=== PATIENT | male | born 1995 | race Caucasian/White ===

== ENCOUNTER 2019-02-21 07:07 | Outpatient (CLI) | payer BC, SELFPAY ==
--- NOTE | 2019-02-21 07:15 | USCV_ITS ---
Barb Briones Age: 23 Gender: M : 1995 Exam Date: 02/21/2019 07:36 Ordering Phys: Makenna Carlson MD ([email or web address]) Technologist: Reynaldo Fonseca Exam Location: [facility] [place] Indication: PULMONIC AND AORTIC VALVE PROS, s/p Ross procedure BP: 130 / 74 HR: 72 Rhythm: Sinus Technical Quality: Good MEASUREMENTS (Male / Female) Normal Values 2D ECHO LV Diastolic Diameter PLAX 4.5 cm 4.2 - 5.9 / 3.9 - 5.3 cm LV Systolic Diameter PLAX 3.0 cm IVS Diastolic Thickness 0.8 cm 0.6 - 1.0 / 0.6 - 0.9 cm IVS Systolic Thickness 1.3 cm LVPW Diastolic Thickness 0.9 cm 0.6 - 1.0 / 0.6 - 0.9 cm LVPW Systolic Thickness 1.5 cm LVOT Diameter 2.0 cm LV Ejection Fraction 2D Teich 63.0 % LV Ejection Fraction MOD 2C 62.1 % LV Ejection Fraction 2C AL 62.3 % LA Diameter 3.1 cm Aorta at Sinotubular Diameter 3.6 cm DOPPLER AV Peak Velocity 111.0 cm/s LVOT Peak Velocity 81.0 cm/s AV Area Cont Eq vti 2.1 cm squared AV Area Cont Eq pk 2.3 cm squared MV Area PHT 5.0 cm squared Mitral E to A Ratio 1.7 MV E' Velocity 16.0 cm/s Mitral E to MV E' Ratio 6.8 Mitral E to LV E' Lateral Ratio 5.9 Mitral E to LV E' Septal Ratio 8.1 TR Peak Velocity 288.0 cm/s TR Peak Gradient 33.3 mmHg TV Peak E Velocity 90.0 cm/s Right Atrial Pressure 3.0 mmHg Pulmonary Artery Systolic Pressu 36.2 mmHg FINDINGS Left Ventricle Normal left ventricular size, systolic function and wall thickness, with no regional wall motion abnormalities. Left ventricular ejection fraction is estimated at 60 %. Normal diastolic function. Right Ventricle Normal right ventricular size and systolic function, RVSP 36.2 mmHg. Right Atrium Normal right atrial size. Left Atrium Normal left atrial size. Mitral Valve Structurally normal mitral valve. No mitral valve stenosis. Trace mitral valve regurgitation. 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 No aortic valve stenosis. Trace to mild aortic valve regurgitation. No evidence of perivalvular regurgitation. Tricuspid Valve Structurally normal tricuspid valve. No tricuspid valve stenosis. Trace tricuspid valve regurgitation. 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 No pulmonary valve stenosis. Trace pulmonary valve regurgitation. Pericardium No pericardial effusion. Aorta Normal size aortic root and proximal ascending aorta. CONCLUSIONS 1. Normal left ventricular size, systolic function and wall thickness, with no regional wall motion abnormalities. Left ventricular ejection fraction is estimated at 60 %. Normal diastolic function. 2. Normal right ventricular size and systolic function, RVSP 36.2 mmHg. 3. 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 No aortic valve stenosis. 4. Trace to mild aortic valve regurgitation. 5. No prior similar studies to compare. Makenna Carlson MD (Electronically Signed) Final Date: 22 February 2019 13:29 S
== END 2019-02-21 07:08 | disposition home or self-care (01) ==
LOC: RAD 07:15
PROVIDERS: Family Provider Family Medicine; PCP Family Medicine; Visit Provider Internal Medicine Cardiovascular Disease
DX: I08.3 Combined rheumatic disorders of mitral, aortic and tricuspid valves (principal); Z95.2 Presence of prosthetic heart valve
CPT/HCPCS: 93306

== ENCOUNTER 2019-04-29 17:03 | Emergency (ER) | payer BC, SELFPAY ==
[2019-04-29 17:09] VITALS: RESP 18; BMI 32.1
[2019-04-29 17:22] VITALS: BP 157/87
--- NOTE | 2019-04-29 17:47 | ED_ITS ---
Entered by Jennifer Carter, acting as scribe for Lee Palacios DO Documented by User: Himanshu Blakely DO 04/29/19 21:13 HPI - Chest Pain General: Chief Complaint: Chest Pain Stated Complaint: CP Time Seen by Provider: 04/29/19 17:52 [facility] ED PFSH: Medical History (Updated 04/29/19 @ 19:21 by Himanshu Blakely DO) Aortic regurgitation Surgical History (Updated 04/29/19 @ 19:21 by Himanshu Blakely DO) H/O Ross procedure History of replacement of pulmonary valve S/P AVR (aortic valve replacement) Family History (Updated 04/24/19 @ 09:25 by Sejal Ortez, RN) Father CAD (coronary artery disease) Diabetes Hypertension Mother CAD (coronary artery disease) Hypertension Social History (Updated 04/24/19 @ 09:25 by Sejal Ortez, DEVIN) Smoking and tobacco status: never smoked Household members: spouse Marital status: Current occupational status: employed Current gender identity: Male Course Vital Signs: Vital signs: Vital Signs Pulse Rate 69 04/29/19 19:29 Respiratory Rate 14 04/29/19 19:29 Blood Pressure 125/93 04/29/19 19:29 Pulse Oximetry 100 04/29/19 19:29 MDM - Chest Pain MDM Narrative: Medical decision making narrative: 23-year-old male checked out to me by Dr. Palacios. This young man has had an aortic valve procedure consisting of a replacement. He presents with chest discomfort. His hemoglobin is 15. White blood cell count 9. His labs are otherwise normal. His troponin is negative. His EKG is completely normal despite his surgery. He had a recent echo in February showing a normal ejection fraction, and good valve performance. Will allow him home to follow-up with cardiology. Lab Data: Labs: Lab Results 04/29/19 04/29/19 04/29/19 Range/Units 17:45 17:45 17:45 WBC 9.0 (4.0-10.0) 10^3/ uL RBC 4.71 (4.1-5.3) 10^6/u L Hgb 14.8 (11.7-16.6) g/dL Hct 44.0 (42.0-52.0) % MCV 93.4 (80-94) fL MCH 31.4 (28.0-34.0) pg MCHC 33.6 (30.0-36.0) g/dL RDW 13.3 (12.1-15.1) % Plt Count 298 (130-400) 10^3/c mm MPV 10.0 (7.4-10.4) fL Neut % (Auto) 50.8 % Lymph % (Auto) 41.1 % Barber % (Auto) 7.2 % Eos % (Auto) 0.4 % Baso % (Auto) 0.3 % Neut # (Auto) 4.5 (1.8-7.7) 10^3/u L Lymph # (Auto) 3.7 (0.8-4.8) 10^3/u L Barber # (Auto) 0.6 (0.2-0.9) 10^3/u L Eos # (Auto) 0.0 (0.0-0.8) 10^3/u L Baso # (Auto) 0.0 (0.0-0.1) 10^3/u L Nucleated RBC % (a uto) 0 % Nucleated RBCs # 0.0 /100WBC Sodium 136 (136-145) mmol/L Potassium 3.9 (3.5-5.1) mmol/L Chloride 100 (98-107) mmol/L Carbon Dioxide 24 (22-29) mmol/L Anion Gap 15.9 (5-19) BUN 13 (6-20) mg/dL Creatinine 0.8 (0.7-1.2) mg/dL GFR Calculation 117.8 (90-130) mL/min Glucose 97 (65-115) mg/dL Calculated Osmolal ity 278 L (285-295) mOsm/k g Calcium 10.1 (8.5-10.5) mg/dL Total Bilirubin 0.4 (0.15-1.2) mg/dL AST 23 (0-40) U/L ALT 35 (0-41) U/L Alkaline Phosphata se 79 (40-130) IU/L Troponin T Baselin e 6 (0-15) ng/mL Total Protein 7.4 (6.6-8.7) g/dL Albumin 4.7 (3.5-5.2) g/dL Globulin 2.7 (1.3-4.6) g/dL Discharge Plan Discharge Clinical Impression: S/P AVR (aortic valve replacement) Chest pain Qualifiers: Chest pain type: unspecified Qualified Code(s): R07.9 - Chest pain, unspecified Condition: Stable Prescriptions: No Action No Known Home Medications RF: 0 Discharge Orders: Discharge Order (Routine); Ordered 04/29/19 Ordered By: Himanshu Blakely Referrals: Vince Carey [Primary Care Provider] - 4-7 days Makenna Carlson MD [Physician] - 7-10 days Discharge Diet: Usual diet Discharge Activity: Increase activity as tolerated Patient Instructions: Chest Pain (ED) Activity Restrictions/Additional Instructions: Call the cardiology clinic Wednesday morning. Let them know you were here with some chest discomfort. They may want to see you in follow-up. Return for fever greater than 100, worsening pain, significant shortness of breath, other concerning symptoms. Discharge Date/Time: 04/29/19 19:34 Coding Level of Care Code ED Alarm Mechanic for Chg Fwd Exam Comprehensive Documented by User: Lee Palacios DO 05/02/19 00:55 HPI - Chest Pain General: Chief Complaint: Chest Pain Stated Complaint: CP Time Seen by Provider: 04/29/19 17:52 History of Present Illness: HPI narrative: 23yo male presents with left chest pain. Symptoms started today and have been constant. Patient had a procedure at 1 years old for aortic stenosis and has a donor valve. He denies any shortness of breath, nausea, vomiting, fever, chills, or cough. Denies any long car rides. Associated symptoms: Deny abdominal pain, dyspnea, fever(s), nausea or vomiting Review of Systems Const: Denies: fever, chills, body aches, change in appetite, fatigue or malaise ENMT: Denies: throat pain, ear pain, nasal discharge or nasal congestion Card: Reports: chest pain; Denies: edema, shortness of breath on exertion or shortness of breath when lying down Resp: Denies: shortness of breath, productive cough or non-productive cough GI: Denies: abdominal pain, nausea, vomiting, vomiting blood, coffee grounds in vomit, diarrhea, constipation, bloating, blood in stool or black tarry stool : Denies: flank pain, painful urination, urinary frequency or urinary urgency Skin/Breast: Denies: rash or itching PFSH ED PFSH: Medical History (Updated 04/29/19 @ 19:21 by Himanshu Blakely DO) Aortic regurgitation Surgical History (Updated 04/29/19 @ 19:21 by Himanshu Blakely DO) H/O Ross procedure History of replacement of pulmonary valve S/P AVR (aortic valve replacement) Family History (Updated 04/24/19 @ 09:25 by Sejal Ortez RN) Father CAD (coronary artery disease) Diabetes Hypertension Mother CAD (coronary artery disease) Hypertension Social History (Updated 04/24/19 @ 09:25 by Sejal Ortez RN) Smoking and tobacco status: never smoked Household members: spouse Marital status: Current occupational status: employed Current gender identity: Male Physical Exam Const: COMMON NORMALS: no apparent distress GENERAL APPEARANCE: cooperative and comfortable ORIENTATION/CONSCIOUSNESS: Yes awake, Yes oriented to person, Yes oriented to place and Yes oriented to time HENMT: COMMON NORMALS: normocephalic, head/scalp atraumatic, hearing grossly normal bilaterally, external ears normal, EAC's normal, TM's normal bilaterally, nasal mucous membranes and turbinates normal, moist oral mucous membranes and oropharynx normal HEAD & SCALP: normocephalic and atraumatic NOSE: nasal mucous membranes and turbinates normal EXTERNAL EAR: Yes external ears normal EXTERNAL AUDITORY CANAL: EAC's normal TYMPANIC MEMBRANE: TM's normal bilaterally Eye: COMMON NORMALS: PERRL, EOMs intact bilaterally, conjunctivae normal and no scleral icterus CONJUNCTIVA: Yes conjunctivae normal PUPIL: Yes PERRL Neck/C-Spine: COMMON NORMALS: full ROM, no lymphadenopathy, supple and no JVD Lymph: LYMPHATIC: no lymphadenopathy noted and no lymphedema noted Resp: COMMON NORMALS: normal respiratory effort, no retractions, no use of accessory muscles and clear to auscultation bilaterally AUSCULTATION: clear to auscultation bilaterally Cardio: COMMON NORMALS: no JVD, regular rate, regular rhythm and no murmurs RATE: regular rate RHYTHM: regular rhythm GI: COMMON NORMALS: soft to palpation and no hepatosplenomegaly AUSCULTATION: Yes normoactive bowel sounds PALPATION: Yes soft, No tender, No guarding and Yes no hepatosplenomegaly Extremity: COMMON NORMALS: normal to inspection, normal capillary refill, no clubbing, cyanosis or edema, no calf tenderness and no pedal edema Neuro: SENSORIUM/ORIENTATION: Yes oriented to person, Yes oriented to place and Yes oriented to time Skin: COMMON NORMALS: no rashes or lesions noted GENERAL SKIN EXAM: no rashes or lesions noted Course ED course: Patient complaining of chest pain. Care turned over to Dr. Blakely at change of shift labs pending Vital Signs: Vital signs: Vital Signs Pulse Rate 69 04/29/19 19:29 Respiratory Rate 14 04/29/19 19:29 Blood Pressure 125/93 04/29/19 19:29 Pulse Oximetry 100 04/29/19 19:29 MDM - Chest Pain Lab Data: Labs: Lab Results 04/29/19 04/29/19 04/29/19 Range/Units 17:45 17:45 17:45 WBC 9.0 (4.0-10.0) 10^3/ uL RBC 4.71 (4.1-5.3) 10^6/u L Hgb 14.8 (11.7-16.6) g/dL Hct 44.0 (42.0-52.0) % MCV 93.4 (80-94) fL MCH 31.4 (28.0-34.0) pg MCHC 33.6 (30.0-36.0) g/dL RDW 13.3 (12.1-15.1) % Plt Count 298 (130-400) 10^3/c mm MPV 10.0 (7.4-10.4) fL Neut % (Auto) 50.8 % Lymph % (Auto) 41.1 % Barber % (Auto) 7.2 % Eos % (Auto) 0.4 % Baso % (Auto) 0.3 % Neut # (Auto) 4.5 (1.8-7.7) 10^3/u L Lymph # (Auto) 3.7 (0.8-4.8) 10^3/u L Barber # (Auto) 0.6 (0.2-0.9) 10^3/u L Eos # (Auto) 0.0 (0.0-0.8) 10^3/u L Baso # (Auto) 0.0 (0.0-0.1) 10^3/u L Nucleated RBC % (a uto) 0 % Nucleated RBCs # 0.0 /100WBC Sodium 136 (136-145) mmol/L Potassium 3.9 (3.5-5.1) mmol/L Chloride 100 (98-107) mmol/L Carbon Dioxide 24 (22-29) mmol/L Anion Gap 15.9 (5-19) BUN 13 (6-20) mg/dL Creatinine 0.8 (0.7-1.2) mg/dL GFR Calculation 117.8 (90-130) mL/min Glucose 97 (65-115) mg/dL Calculated Osmolal ity 278 L (285-295) mOsm/k g Calcium 10.1 (8.5-10.5) mg/dL Total Bilirubin 0.4 (0.15-1.2) mg/dL AST 23 (0-40) U/L ALT 35 (0-41) U/L Alkaline Phosphata se 79 (40-130) IU/L Troponin T Baselin e 6 (0-15) ng/mL Total Protein 7.4 (6.6-8.7) g/dL Albumin 4.7 (3.5-5.2) g/dL Globulin 2.7 (1.3-4.6) g/dL Discharge Plan Discharge Clinical Impression: S/P AVR (aortic valve replacement) Chest pain Qualifiers: Chest pain type: unspecified Qualified Code(s): R07.9 - Chest pain, unspecified Condition: Stable Prescriptions: No Action No Known Home Medications RF: 0 Discharge Orders: Discharge Order (Routine); Ordered 04/29/19 Ordered By: Himanshu Blakely Referrals: Vince Carey [Primary Care Provider] - 4-7 days Makenna Carlson MD [Physician] - 7-10 days Discharge Diet: Usual diet Discharge Activity: Increase activity as tolerated Patient Instructions: Chest Pain (ED) Activity Restrictions/Additional Instructions: Call the cardiology clinic Wednesday morning. Let them know you were here with some chest discomfort. They may want to see you in follow-up. Return for fever greater than 100, worsening pain, significant shortness of breath, other concerning symptoms. Discharge Date/Time: 04/29/19 19:34 Coding Level of Care Code ED Alarm Mechanic for Chg Fwd Exam Comprehensive The documentation recorded by the Raul golden Bailey Leadawn, accurately reflects the service I personally performed and the decisions made by me, Lee Palacios, Apr 29, 2019 17:03
--- NOTE | 2019-04-29 17:52 | XRR_ITS ---
PROCEDURE INFORMATION: Exam: XR Chest, 1 View Exam date and time: 04/29/2019 5:53 PM Age: 23 years old Clinical indication: Chest wall pain; Prior surgery; Surgery date: 6+ months; Surgery type: Cabg; Additional info: Dyspnea/cough TECHNIQUE: Imaging protocol: XR of the chest Views: 1 view. COMPARISON: No relevant prior studies available. FINDINGS: Lungs: Unremarkable. No consolidation. There is an azygos fissure. Punctate calcified granulomas are noted. Pleural space: Unremarkable. No pleural effusion. No pneumothorax. Heart/Mediastinum: There is cardiomegaly. Postoperative changes of a sternotomy are noted. Bones/joints: No acute abnormality. XR/XR chest 1V portable [id number] IMPRESSION: No acute findings.
--- NOTE | 2019-04-29 17:52 | ECG_ITS ---
Measurements Intervals [place] Rate: 71 P: 43 AR: 147 QRS: 86 QRSD: 102 T: 62 QT: 382 QTc: 415 SINUS RHYTHM No previous ECG available for comparison Electronically Signed On 04-30-2019 9:16:30 CDT by Gregg Ho M.D. [email or web address]
[2019-04-29 17:53] VITALS: BP 134/95; PULSE 88; RESP 16; O2SAT 99
[2019-04-29 18:12] LABS: Basophils % 0.3 %; Eosinophils % 0.4 %; Hemoglobin 14.8 g/dL (11.7-16.6); Lymphocytes # 3.7 10^3/uL (0.8-4.8); Lymphocytes % 41.1 %; Mean Corpuscular HGB Conc 33.6 g/dL (30.0-36.0); Mean Corpuscular Hemoglobin 31.4 pg (28.0-34.0); Mean Corpuscular Volume 93.4 fL (80-94); Monocytes # 0.6 10^3/uL (0.2-0.9); Monocytes % 7.2 %; Neutrophils # 4.5 10^3/uL (1.8-7.7); Neutrophils % 50.8 %; Nucleated Red Blood Cells % 0 %; Platelet Count 298 10^3/cmm (130-400); Red Blood Count 4.71 10^6/uL (4.1-5.3); Red Cell Distribution Width 13.3 % (12.1-15.1)
[2019-04-29 18:16] LABS: Alanine Aminotransferase 35 U/L (0-41); Albumin Level 4.7 g/dL (3.5-5.2); Alkaline Phosphatase 79 IU/L (40-130); Anion Gap 15.9 (5-19); Aspartate Amino Transferase 23 U/L (0-40); Blood Urea Nitrogen 13 mg/dL (6-20); Calcium 10.1 mg/dL (8.5-10.5); Carbon Dioxide 24 mmol/L (22-29); Chloride 100 mmol/L (98-107); Globulin 2.7 g/dL (1.3-4.6); Glomerular Filtration Rate 117.8 mL/min (90-130); Glucose 97 mg/dL (65-115); Osmolality Calculated 278 mOsm/kg (285-295); Potassium 3.9 mmol/L (3.5-5.1); Sodium 136 mmol/L (136-145); Total Bilirubin 0.4 mg/dL (0.15-1.2); Total Protein 7.4 g/dL (6.6-8.7)
[2019-04-29 18:18] LABS: Troponin(5th) Baseline 6 ng/mL (0-15)
[2019-04-29 18:38] VITALS: BP 132/88; PULSE 67; RESP 14; O2SAT 99
--- NOTE | 2019-04-29 19:04 | PC.NURSE ---
Report received from DEVIN Cuevas and care transferred to DEVIN Lee
[2019-04-29 19:08] VITALS: BP 128/93; PULSE 64; RESP 14; O2SAT 100
[2019-04-29 19:29] VITALS: BP 125/93; PULSE 69; RESP 14; O2SAT 100
== END 2019-04-29 19:34 ==
PROVIDERS: Family Medicine; Emergency Provider Emergency Medicine; Family Provider Family Medicine; PCP Family Medicine
DX: R07.9 Chest pain, unspecified (principal); Z95.2 Presence of prosthetic heart valve; Z82.49 Family history of ischemic heart disease and other diseases of the circulatory system
CPT/HCPCS: 12345; 71045; 80053; 84484; 85025; 93005; 99283; 99284

== ENCOUNTER 2021-04-04 04:50 | Emergency (ER) | payer BC, MEDICAID, SELFPAY ==
[2021-04-04 04:56] VITALS: BP 154/91; PULSE 86; RESP 18; TEMP 37; O2SAT 96; BMI 32.8
[2021-04-04] MEDS: ondansetron 2 mg/ML SDV 2 mL 4 MG IVP (05:07)
--- NOTE | 2021-04-04 05:13 | ED_ITS ---
Documented by User: Vic Whitehead MD 04/04/21 18:02 HPI - Nausea/Vomiting/Diarrhea General: Chief complaint: Nausea/Vomiting/Diarrhea Stated complaint: Vomiting Blood Time Seen by Provider: 04/04/21 04:53 Source: patient Mode of arrival: ambulatory Limitations: no limitations History of Present Illness: 25-year-old male states that he woke up this morning felt nauseous and had an episode of vomiting at 330. He states that a small amount of blood in the vomitus concerning. Denies any abdominal pain denies any worsening improving factors he is not on any blood thinners. He denies blood in his stool states he has had some diarrhea in the last day but no dark stools no blood in his stool. 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 S/P AVR (aortic valve replacement) Family History Father CAD (coronary artery disease) Diabetes Hypertension Mother CAD (coronary artery disease) Hypertension Social History Smoking and tobacco status: never smoked Household members: spouse Marital status: Current occupational status: employed Current gender identity: Male Physical Exam Const: COMMON NORMALS: no acute distress, patient oriented x3 and healthy appearing HENMT: COMMON NORMALS: normocephalic and atraumatic HEAD & SCALP: normocephalic and atraumatic Eye: COMMON NORMALS: Equal, round and reactive pupils present and EOMs intact bilaterally PUPIL: Yes Equal, round and reactive pupils present Neck/C-Spine: COMMON NORMALS: full ROM and supple Chest: COMMONS NORMALS: normal inspection of the chest and normal palpation of entire chest wall Resp: COMMON NORMALS: normal respiratory effort, No retractions, No use of ac cessory muscles and clear to auscultation bilaterally AUSCULTATION: clear to auscultation bilaterally Cardio: COMMON NORMALS: regular rate, regular rhythm and No murmurs present (Cardio) RATE: regular rate RHYTHM: regular rhythm GI: COMMON NORMALS: Normal to inspection, nondistended, normoactive bowel sounds present, Soft to palpation, non-tender and no masses PALPATION: Yes Soft to palpation RECTAL EXAM: Yes visual inspection normal, No Abnormal stool present and No heme positive stool Extremity: COMMON NORMALS: normal to inspection and full ROM Neuro: COMMON NORMALS: patient oriented x3, moves all extremities and no focal motor deficits Psych: COMMON NORMALS: mental status grossly normal, Normal thought process present and cooperative THOUGHT PROCESS: Normal thought process present Skin: COMMON NORMALS: no rashes or lesions noted and no wounds GENERAL SKIN EXAM: no rashes or lesions noted Course Vital Signs: Vital signs: Vital Signs Temperature 98.6 F 04/04/21 04:56 Pulse Rate 78 04/04/21 09:39 Respiratory Rate 15 04/04/21 07:40 Blood Pressure 150/98 04/04/21 07:40 Pulse Oximetry 99 04/04/21 09:39 MDM - Nausea/Vomiting/Diarrhea Medical Decision Making Patient presents with vomiting did have one episode of vomiting blood he showed me a picture was a small amount likely from Tanya-Foster tear. He is not on any blood thinners no history of varices. He had no blood in his stool here on rectal exam hemoglobin is normal he had no bleeding here. He is stable for discharge is to follow-up with PCP and return if worsening. We will get him follow-up with GI Dr. Clarke as well for possible EGD in the future. Lab Data : 04/04/21 05:08 04/04/21 08:20 Laboratory Results WBC 10.6 10^3/uL (4.0-10.0) H 04/04/21 05:08 RBC 4.85 10^6/uL (4.1-5.3) 04/04/21 05:08 Hgb 15.1 g/dL (11.7-16.6) 04/04/21 05:08 Hct 44.3 % (42.0-52.0) 04/04/21 05:08 MCV 91.3 fl (80-94) 04/04/21 05:08 MCH 31.1 pg (28.0-34.0) 04/04/21 05:08 MCHC 34.1 g/dL (30.0-36.0) 04/04/21 05:08 RDW 13.2 % (12.1-15.1) 04/04/21 05:08 Plt Count 279 10^3/cmm (130-400) 04/04/21 05:08 MPV 9.6 fL (7.4-10.4) 04/04/21 05:08 Neut % (Auto) 74.3 % 04/04/21 05:08 Lymph % (Auto) 19.1 % 04/04/21 05:08 [place] % (Auto) 5.8 % 04/04/21 05:08 Eos % (Auto) 0.2 % 04/04/21 05:08 Baso % (Auto) 0.2 % 04/04/21 05:08 Neut # (Auto) 7.85 10^3/uL (1.8-7.7) H 04/04/21 05:08 Lymph # (Auto) 2.0 10^3/uL (0.8-4.8) 04/04/21 05:08 [place] # (Auto) 0.6 10^3/uL (0.2-0.9) 04/04/21 05:08 Eos # (Auto) 0.0 10^3/uL (0.0-0.8) 04/04/21 05:08 Baso # (Auto) 0.0 10^3/uL (0.0-0.1) 04/04/21 05:08 Nucleated RBC % (auto) 0 % 04/04/21 05:08 Nucleated RBCs # 0.0 /100WBC 04/04/21 05:08 PT 13.60 SECONDS (12.1-14.9) 04/04/21 05:08 INR 1.01 (0.8-1.2) 04/04/21 05:08 Sodium 137 mmol/L (136-145) 04/04/21 08:20 Potassium 4.3 mmol/L (3.5-5.1) 04/04/21 08:20 Chloride 102 mmol/L (98-107) 04/04/21 08:20 Carbon Dioxide 23 mmol/L (22-29) 04/04/21 08:20 Anion Gap 16.3 (5-19) 04/04/21 08:20 BUN 12 mg/dL (6-20) 04/04/21 08:20 Creatinine 0.6 mg/dL (0.7-1.2) L 04/04/21 08:20 GFR Calculation 161.6 mL/min (90-130) H 04/04/21 08:20 Glucose 104 mg/dL (65-115) 04/04/21 08:20 Calculated Osmolality 284 mOsm/kg (285-295) L 04/04/21 08:20 Calcium 9.3 mg/dL (8.5-10.5) 04/04/21 08:20 Total Bilirubin 0.5 mg/dL (0.15-1.2) 04/04/21 06:04 AST 28 U/L (0-40) 04/04/21 06:04 ALT 49 U/L (0-41) H 04/04/21 06:04 Alkaline Phosphatase 43 IU/L (40-130) 04/04/21 06:04 Total Protein 5.6 g/dL (6.6-8.7) L 04/04/21 06:04 Albumin 3.4 g/dL (3.5-5.2) L 04/04/21 06:04 Globulin 2.2 g/dL (1.3-4.6) 04/04/21 06:04 Lipase 12 U/L (13-60) L 04/04/21 06:04 Discharge Plan Discharge Patient Disposition: Home Clinical Impression: Hematemesis Condition: Stable Prescriptions: New ondansetron 4 mg tablet,disintegrating 4 mg PO Q6H PRN (Reason: nausea and vomiting) Qty: 14 0RF Discharge Orders: Discharge ED (Routine); Ordered 04/04/21 Ordered By: Jose Armando Cano Referrals: Wes Clarke MD [Physician] - 1-3 days Vince Carey [Primary Care Provider] - Discharge Diet: Advance as tolerated Discharge Activity: Resume usual activity Patient Instructions: Hematemesis (ED) Coding Level of Care Code ED Senior Applications Engineer for Chg Fwd Exam Comprehensive Documented by User: Jose Armando Cano MD 04/04/21 09:24 HPI - Nausea/Vomiting/Diarrhea General: Chief complaint: Nausea/Vomiting/Diarrhea Stated complaint: Vomiting Blood Time Seen by Provider: 04/04/21 04:53 PFSH ED PFSH: Medical History Aortic regurgitation Surgical History 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 Whitehead. Patient here with nausea and vomiting. Awaiting lab results. BMP showed a potassium of 2.8. Will give IV fluid, p.o. potassium, IV potassium, and recheck BMP. On recheck the patient's potassium is within normal limits. I talked to the patient about the test results. Will discharge at this time with precautions return for worsening or changing symptoms. Vital Signs: Vital signs: Vital Signs Temperature 98.6 F 04/04/21 04:56 Pulse Rate 78 04/04/21 09:39 Respiratory Rate 15 04/04/21 07:40 Blood Pressure 150/98 04/04/21 07:40 Pulse Oximetry 99 04/04/21 09:39 MDM - Nausea/Vomiting/Diarrhea Lab Data : 04/04/21 05:08 04/04/21 08:20 Laboratory Results WBC 10.6 10^3/uL (4.0-10.0) H 04/04/21 05:08 RBC 4.85 10^6/uL (4.1-5.3) 04/04/21 05:08 Hgb 15.1 g/dL (11.7-16.6) 04/04/21 05:08 Hct 44.3 % (42.0-52.0) 04/04/21 05:08 MCV 91.3 fl (80-94) 04/04/21 05:08 MCH 31.1 pg (28.0-34.0) 04/04/21 05:08 MCHC 34.1 g/dL (30.0-36.0) 04/04/21 05:08 RDW 13.2 % (12.1-15.1) 04/04/21 05:08 Plt Count 279 10^3/cmm (130-400) 04/04/21 05:08 MPV 9.6 fL (7.4-10.4) 04/04/21 05:08 Neut % (Auto) 74.3 % 04/04/21 05:08 Lymph % (Auto) 19.1 % 04/04/21 05:08 [place] % (Auto) 5.8 % 04/04/21 05:08 Eos % (Auto) 0.2 % 04/04/21 05:08 Baso % (Auto) 0.2 % 04/04/21 05:08 Neut # (Auto) 7.85 10^3/uL (1.8-7.7) H 04/04/21 05:08 Lymph # (Auto) 2.0 10^3/uL (0.8-4.8) 04/04/21 05:08 [place] # (Auto) 0.6 10^3/uL (0.2-0.9) 04/04/21 05:08 Eos # (Auto) 0.0 10^3/uL (0.0-0.8) 04/04/21 05:08 Baso # (Auto) 0.0 10^3/uL (0.0-0.1) 04/04/21 05:08 Nucleated RBC % (auto) 0 % 04/04/21 05:08 Nucleated RBCs # 0.0 /100WBC 04/04/21 05:08 PT 13.60 SECONDS (12.1-14.9) 04/04/21 05:08 INR 1.01 (0.8-1.2) 04/04/21 05:08 Sodium 137 mmol/L (136-145) 04/04/21 08:20 Potassium 4.3 mmol/L (3.5-5.1) 04/04/21 08:20 Chloride 102 mmol/L (98-107) 04/04/21 08:20 Carbon Dioxide 23 mmol/L (22-29) 04/04/21 08:20 Anion Gap 16.3 (5-19) 04/04/21 08:20 BUN 12 mg/dL (6-20) 04/04/21 08:20 Creatinine 0.6 mg/dL (0.7-1.2) L 04/04/21 08:20 GFR Calculation 161.6 mL/min (90-130) H 04/04/21 08:20 Glucose 104 mg/dL (65-115) 04/04/21 08:20 Calculated Osmolality 284 mOsm/kg (285-295) L 04/04/21 08:20 Calcium 9.3 mg/dL (8.5-10.5) 04/04/21 08:20 Total Bilirubin 0.5 mg/dL (0.15-1.2) 04/04/21 06:04 AST 28 U/L (0-40) 04/04/21 06:04 ALT 49 U/L (0-41) H 04/04/21 06:04 Alkaline Phosphatase 43 IU/L (40-130) 04/04/21 06:04 Total Protein 5.6 g/dL (6.6-8.7) L 04/04/21 06:04 Albumin 3.4 g/dL (3.5-5.2) L 04/04/21 06:04 Globulin 2.2 g/dL (1.3-4.6) 04/04/21 06:04 Lipase 12 U/L (13-60) L 04/04/21 06:04 Discharge Plan Discharge Patient Disposition: Home Clinical Impression: Hematemesis Condition: Stable Prescriptions: New ondansetron 4 mg tablet,disintegrating 4 mg PO Q6H PRN (Reason: nausea and vomiting) Qty: 14 0RF Discharge Orders: Discharge ED (Routine); Ordered 04/04/21 Ordered By: Jose Armando Cano Referrals: Wes Clarke MD [Physician] - 1-3 days Vince Carey [Primary Care Provider] - Discharge Diet: Advance as tolerated Discharge Activity: Resume usual activity Patient Instructions: Hematemesis (ED) Coding Level of Care Code ED Senior Applications Engineer for Chg Fwd Exam Comprehensive
[2021-04-04 05:29] LABS: Basophils % 0.2 %; Eosinophils % 0.2 %; Hematocrit 44.3 % (42.0-52.0); Hemoglobin 15.1 g/dL (11.7-16.6); Lymphocytes % 19.1 %; Mean Corpuscular HGB Conc 34.1 g/dL (30.0-36.0); Mean Corpuscular Hemoglobin 31.1 pg (28.0-34.0); Mean Corpuscular Volume 91.3 fl (80-94); Mean Platelet Volume 9.6 fL (7.4-10.4); Monocytes # 0.6 10^3/uL (0.2-0.9); Monocytes % 5.8 %; Neutrophils # 7.85 10^3/uL (1.8-7.7); Neutrophils % 74.3 %; Nucleated Red Blood Cells % 0 %; Platelet Count 279 10^3/cmm (130-400); Red Blood Count 4.85 10^6/uL (4.1-5.3); Red Cell Distribution Width 13.2 % (12.1-15.1); White Blood Count 10.6 10^3/uL (4.0-10.0)
[2021-04-04 05:42] LABS: INR 1.01 (0.8-1.2)
[2021-04-04 06:31] LABS: Alanine Aminotransferase 49 U/L (0-41); Albumin Level 3.4 g/dL (3.5-5.2); Alkaline Phosphatase 43 IU/L (40-130); Anion Gap 11.8 (5-19); Aspartate Amino Transferase 28 U/L (0-40); Blood Urea Nitrogen 10 mg/dL (6-20); Calcium 6.5 mg/dL (8.5-10.5); Carbon Dioxide 18 mmol/L (22-29); Chloride 113 mmol/L (98-107); Globulin 2.2 g/dL (1.3-4.6); Glucose 114 mg/dL (65-115); Lipase 12 U/L (13-60); Osmolality Calculated 290 mOsm/kg (285-295); Sodium 140 mmol/L (136-145); Total Bilirubin 0.5 mg/dL (0.15-1.2); Total Protein 5.6 g/dL (6.6-8.7)
[2021-04-04 06:36] LABS: Potassium 2.8 mmol/L (3.5-5.1)
[2021-04-04] MEDS: potassium chloride ER 20 mEq Tablet PO (06:49)
[2021-04-04] MEDS: sodium chloride 0.9% 1,000 ML 999 ML IV (06:50)
[2021-04-04] MEDS: potassium chloride premix 100 ML 50 MEQ IV (06:53)
[2021-04-04 06:55] VITALS: BP 122/86; PULSE 71; RESP 18; O2SAT 96
[2021-04-04 07:08] VITALS: BP 139/91; PULSE 70; RESP 12; O2SAT 96
--- NOTE | 2021-04-04 07:13 | PC.NURSE ---
PATIENT RESTING COMFORTABLY IN BED WHILE FLUIDS RUNNING. PATIENT BED ADJUSTED. NO FURTHER NEEDS AT THIS TIME.
[2021-04-04 07:40] VITALS: BP 150/98; PULSE 63; RESP 15; O2SAT 96
[2021-04-04 08:48] LABS: Anion Gap 16.3 (5-19); Blood Urea Nitrogen 12 mg/dL (6-20); Calcium 9.3 mg/dL (8.5-10.5); Carbon Dioxide 23 mmol/L (22-29); Chloride 102 mmol/L (98-107); Glomerular Filtration Rate 161.6 mL/min (90-130); Glucose 104 mg/dL (65-115); Osmolality Calculated 284 mOsm/kg (285-295); Potassium 4.3 mmol/L (3.5-5.1); Sodium 137 mmol/L (136-145)
[2021-04-04 09:39] VITALS: PULSE 78; O2SAT 99
--- NOTE | 2021-04-04 10:27 | DCPLANNER ---
Addendum entered by Yanet Ball 04/11/21 14:45: Patient had a follow up appointment scheduled for 04.09.[address] Antonio at general surgery - patient did attend appointment. Original Note: recruiting manager had message to schedule a follow up appointment for patient with general surgery. recruiting manager emailed patients information to Isatu Ngo and Angelica at [facility] General Surgery / ENT clinic. Patients information will be printed and reviewed. Clinic will call patient with appointment information.
== END 2021-04-04 09:35 | disposition home or self-care (01) ==
PROVIDERS: Emergency Medicine; Emergency Provider Emergency Medicine; PCP Family Medicine
DX: K92.0 Hematemesis (principal)
CPT/HCPCS: 36415; 80048; 80053; 83690; 85025; 85610; 96365; 96366; 96375; 99284; J2405; J3480; J7030

== ENCOUNTER → 2021-04-15 08:57 | Outpatient (BNVA) | payer BC, MEDICAID, SELFPAY | PROVIDERS: PCP Family Medicine; Visit Provider Surgery | DX: Z20.822 Contact with and (suspected) exposure to COVID-19 (principal) | CPT/HCPCS: 87635 ==

== ENCOUNTER 2021-04-17 08:17 | Day surgery (SDC) | payer BC, MEDICAID, SELFPAY ==
--- NOTE | 2021-04-17 08:56 | ANES.PREANE2 ---
Pre-Anesthetic Assessment Height/Weight: Height 1.8 m Weight 106.594 kg Preop Diagnosis: Hematemesis Operation Date: 04/17/21 10:15 Proposed Procedures p EGD 93897/[id number](Not Applicable) - Derrick Antonio MD Familial anesthetic complications: Difficult waking up Last intake: > 8 hrs Social No alcohol and No tobacco Exam alert, oriented x 3, clear to auscultation bilaterally and regular rate & rhythm Airway Cervical ROM: within normal limits Mallampati: Class II Dentition: chipped Comments: Comments: Full yan CV/HEM replaced aortic valve and pulmonary valve at age 1 (ross procedure) - states he has no functional limitations since. Was able to run jump and play and kept up with the other kids physically. 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
[2021-04-17 09:11] VITALS: BP 120/82; PULSE 71; RESP 18; TEMP 36.1; O2SAT 98
[2021-04-17] MEDS: sodium chloride 0.9% 1,000 ML 30 ML IV (09:25)
--- NOTE | 2021-04-17 11:34 | W.PM.OPSUD ---
Surgery/Procedure H&P Update DATE OF PROCEDURE: April 17, 2021 DATE H&P PERFORMED: 04/09/21 PREOP DIAGNOSIS: Hematemesis PRIMARY INDICATION FOR PROCEDURE: The same We will plan to give the patient 2 g of Ancef as a preop antibiotic coverage as he did have a previous cardiac procedure PLANNED PROCEDURE: Operation Date: 04/17/21 10:15 Proposed Procedures p EGD 20967/k92(Not Applicable) - Derrick Antonio MD
[2021-04-17 11:58] VITALS: BP 113/80; PULSE 77; RESP 18; TEMP 36.2; O2SAT 98
[2021-04-17 12:14] VITALS: BP 113/82; PULSE 74; RESP 17; O2SAT 97
--- NOTE | 2021-04-17 19:17 | ANE.PACU2 ---
Inpatient post-anesthesia follow up: Airway intact: Yes Vital signs: Temperature 97.2 F Pulse Rate 74 Respiratory Rate 17 Blood Pressure 113/82 Pulse Oximetry 97 Oxygen Delivery Me thod Room Air Oxygen Flow Rate 4 Fraction of Inspir ed Oxygen Hydration adequate: Yes Nausea and vomiting: No Pain level: 1 Mental status: Baseline
[2021-04-18 11:00] LABS: H. Pylori / CLO Test Negative
== END 2021-04-17 12:18 | disposition home or self-care (01) ==
PROVIDERS: PCP Family Medicine; Visit Provider Surgery
PROC: 0DJ08ZZ Inspection of Upper Intestinal Tract, Via Natural or Artificial Opening Endoscopic (ICD-10-PCS; CPT 43235; principal; 2021-04-17 10:15)
DX: K92.0 Hematemesis (principal); K21.00 Gastro-esophageal reflux disease with esophagitis, without bleeding; K25.3 Acute gastric ulcer without hemorrhage or perforation; Z82.49 Family history of ischemic heart disease and other diseases of the circulatory system; Z83.3 Family history of diabetes mellitus
CPT/HCPCS: 43239; 87077; 96365; J0690; J2704; J7030

== ENCOUNTER 2021-05-22 09:00 | Day surgery (SDC) | payer BC, MEDICAID, SELFPAY ==
[2021-05-22 08:14] VITALS: BMI 32.8
[2021-05-22 09:29] VITALS: BP 125/84; PULSE 71; RESP 18; TEMP 36.4; O2SAT 97
[2021-05-22] MEDS: sodium chloride 0.9% 1,000 ML 30 ML IV (09:34)
--- NOTE | 2021-05-22 10:21 | W.PM.OPSUD ---
Surgery/Procedure H&P Update DATE OF PROCEDURE: May 22, 2021 DATE H&P PERFORMED: 04/30/21 H&P UPDATE INFORMATION: I have reviewed H&P completed within last 30 days, I have examined patient prior to procedure and No changes to prior documentation PREOP DIAGNOSIS: Gastric ulcer PRIMARY INDICATION FOR PROCEDURE: The same PLANNED PROCEDURE: Operation Date: 05/22/21 10:15 Proposed Procedures p EGD 71960/k25.9(Not Applicable) - Derrick Antonio MD
--- NOTE | 2021-05-22 11:03 | ANES.PREANE2 ---
Pre-Anesthetic Assessment Height/Weight: Height 1.8 m Weight 106.594 kg Temp Pulse Resp BP Pulse Ox 97.6 F 71 18 125/84 97 05/22/21 09:29 05/22/21 09:29 05/22/21 09:29 05/22/21 09:29 05/22/21 09:29 Preop Diagnosis: Gastric ulcer Operation Date: 05/22/21 10:15 Proposed Procedures p EGD 20433/k25.9(Not Applicable) - Derrick Antonio MD Familial anesthetic complications: NOne Was Beta Keyshawn taken within 24 hours: N/A Was Clonidine taken within 24 hours: N/A Last intake: Intake Last Liquid Date 05/21/21 Last Liquid Time 23:00 Last Solid Date 05/21/21 Last Solid Time 23:00 Social No alcohol and No tobacco Exam alert, oriented x 3, clear to auscultation bilaterally and regular rate & rhythm Airway Mallampati: Class II Dentition: full Pulmonary None reported CV/HEM Ross procedure (donor valve) - plays well since kid GI Peptic Ulcer Disease Anesthetic Plan ASA status: 2 Anesthesia: MAC Risk of > 500 ml blood loss (7ml/kg in children): No Medications/Allergies Home Medications Medication Instructions Recorded Confirmed Last Taken Type pantoprazole 40 mg tablet,delayed 40 mg PO DAILY 30 Days #30 tab 04/17/21 05/22/21 05/22/21 Rx release (Protonix) sucralfate 1 gram tablet (Carafate) 1 g PO TID 84 Days #252 tab 04/17/21 05/22/21 05/22/21 Rx Allergies Allergy/AdvReac Type Severity Reaction Status Date / Time codeine Allergy Severe ALGY-Rash Verified 05/22/21 08:14 Current Medications Generic Name Dose Route Start Last Admin Trade Name Freq PRN Reason Stop Dose Admin Sodium Chloride 1,000 mls @ 30 mls/hr 05/22/21 09:15 05/22/21 09:34 Sodium Chloride 0.9% IV 30 mls/hr .Q24H CHAMP Administration PFSH Anesthesia Medical History Aortic regurgitation 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
[2021-05-22 11:23] VITALS: BP 104/73; PULSE 70; RESP 17; TEMP 36.1; O2SAT 98
[2021-05-22 11:34] VITALS: BP 119/75; PULSE 65; RESP 16; O2SAT 97
--- NOTE | 2021-05-22 17:41 | ANE.PACU2 ---
Inpatient post-anesthesia follow up: Airway intact: Yes Vital signs: Temperature 97 F Pulse Rate 65 Respiratory Rate 16 Blood Pressure 119/75 Pulse Oximetry 97 Oxygen Delivery Me thod Room Air Oxygen Flow Rate 2 Fraction of Inspir ed Oxygen Hydration adequate: Yes Nausea and vomiting: No Pain level: 1 Mental status: Baseline
== END 2021-05-22 11:45 | disposition home or self-care (01) ==
PROVIDERS: PCP Family Medicine; Visit Provider Surgery
PROC: 0DJ08ZZ Inspection of Upper Intestinal Tract, Via Natural or Artificial Opening Endoscopic (ICD-10-PCS; CPT 43235; principal; 2021-05-22 10:15)
DX: K25.9 Gastric ulcer, unspecified as acute or chronic, without hemorrhage or perforation (principal); K29.70 Gastritis, unspecified, without bleeding
CPT/HCPCS: 43235; J2704; J7030

== ENCOUNTER → 2021-06-04 13:05 | Outpatient (BNVA) | payer BC, MEDICAID, SELFPAY | PROVIDERS: PCP Family Medicine; Visit Provider Surgery | DX: Z09 Encounter for follow-up examination after completed treatment for conditions other than malignant neoplasm (principal) | CPT/HCPCS: 99213 ==

== ENCOUNTER 2024-11-22 19:42 | Emergency (ER) | payer BC, SELFPAY ==
[2024-11-22 19:44] VITALS: BP 159/93; PULSE 92; RESP 16; TEMP 36.8; O2SAT 98; BMI 34.7
[2024-11-22 20:34] VITALS: BP 154/89; PULSE 89; O2SAT 96
[2024-11-22] MEDS: pantoprazole 40 mg SDV IVP (20:36)
[2024-11-22] MEDS: alum-mag-hydroxide-sime 30 mL UDC PO (20:36)
[2024-11-22] MEDS: ondansetron 2 mg/ML SDV 2 mL 4 MG IVP (20:36)
[2024-11-22 20:40] LABS: Hematocrit 44.9 % (37-53); Hemoglobin 15.70 g/dL (11.27-16.99); Mean Corpuscular HGB Conc 35.0 g/dL (30-55); Mean Corpuscular Hemoglobin 31.4 pg (27-33); Mean Corpuscular Volume 89.8 fl (82-101); Nucleated Red Blood Cells % 0 %; Platelet Count 323 10^3/cmm (157-399); Red Blood Count 5.00 10^6/uL (3.85-5.65); White Blood Count 13.10 10^3/uL (3.29-11.43)
--- NOTE | 2024-11-22 20:48 | W.ED.GIBLEED ---
HPI - GI Bleed General: Chief complaint: GI Bleed Stated complaint: vomit blood and possible blood in stool Time Seen by Provider: 11/22/24 20:09 History of Present Illness: 29-year-old male history of peptic ulcer disease treated 4 years ago not currently on any medication, presenting to the emergency department with mild abdominal pain, vomiting with blood, possible dark stool. Patient reports that earlier today started developing recurrent vomiting, 4 episodes of vomiting the first 2 had food contents and the last episode had bright red blood, no clots, he also reports that his stool looked a little darker than normal but no visible blood or black tarry appearance, he has a 2 out of 10 diffuse abdominal pain, no fever, reports that his last 2 bowel movements were diarrheal. 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 S/P AVR (aortic valve replacement) Family History Father CAD (coronary artery disease) Diabetes Hypertension Mother CAD (coronary artery disease) Hypertension Social History Smoking and tobacco/nicotine status: never used tobacco/nicotine Household members: spouse Marital status: Current occupational status: employed Current gender identity: Male Physical Exam Narrative: EXAM NARRATIVE: Gen: A&Ox4, no acute distress, nontoxic appearing HEENT: Normocephalic, atraumatic, no scleral icterus, external ears normal, moist mucous membranes Neck: Supple, full range of motion, no observable masses Lungs: No Respiratory distress, Lungs clear to auscultation bilaterally no rales, rhonchi, wheezing CV: Regular rate and rhythm, no murmur, no pitting edema to lower extremities bilaterally Abdomen: Soft, nondistended, mildly tender to the epigastrium, nontender elsewhere, no rebound guarding or rigidity MSK: No joint swelling, FROM all 4 extremities Skin: No rashes, petechiae, lesions. Normal color per patient. Neuro: Alert and oriented, no slurred speech, sensation and strength grossly intact all 4 extremities Psych: Appropriate for situation. Course Reevaluation(s): Reevaluation #1: Patient reevaluated, pain resolved, no tenderness on palpation, labs reassuring, stable for discharge with initiation of PPI, outpatient GI evaluation, strict return precautions for any worsening bleeding lightheaded dizziness chest pains fevers worsening pain abdominal distention or lack of improvement or inability to arrange a reasonable GI outpatient evaluation Time: 21:38 Vital Signs: Vital signs: Vital Signs Temperature 98.3 F 11/22/24 19:44 Pulse Rate 89 11/22/24 20:34 Respiratory Rate 16 11/22/24 19:44 Blood Pressure 154/89 11/22/24 20:34 Pulse Oximetry 96 11/22/24 20:34 Oxygen Delivery Me thod Room Air 11/22/24 20:34 MDM - GI Bleed Medical Decision Making 29-year-old male presenting with mild abdominal pain, vomiting with last episode of vomiting containing blood, notably first few episodes did not have blood visible, in the setting of peptic ulcer disease treated 4 years ago currently not on any controller medication. Clinically well-appearing, no subconjunctival pallor, no hemodynamic instability, minimally tender to the epigastrium but otherwise and nontender benign abdomen no concern for perforated viscus or acute peritonitis, plan for labs to assess for anemia, trial of GI cocktail Maalox Zofran Protonix, assess severity of bleed, reassess for disposition. If significant anemia would anticipate transfusion and transfer to a center with emergent endoscopy capabilities, if no anemia and no recurrent episodes of hematemesis while in the ER would anticipate trial of PPI and outpatient GI follow-up with strict return precautions. no hx of cirrhosis or alcohol abuse. Lab Data Labs with hemoglobin 15, mild leukocytosis 13.1, minimal AST ALT elevation without hyperbilirubinemia 11/22/24 20:11/22/24: Laboratory Results WBC 13.10 10^3/uL (3.29-11.43) H 11/22/24 RBC 5.00 10^6/uL (3.85-5.65) 11/22/24: Hgb 15.70 g/dL (11.27-16.99) 11/22/24: Hct 44.9 % (37-53) 11/22/24: MCV 89.8 fl (82-101) 11/22/24: MCH 31.4 pg (27-33) 11/22/24 MCHC 35.0 g/dL (30-55) 11/22/24 RDW 13.4 % (12.1-15.1) 11/22/24 Plt Count 323 10^3/cmm (157-399) 11/22/24 MPV 9.3 fL (7.4-10.4) 11/22/24 Neut % (Auto) 86.9 % 11/22/24: Lymph % (Auto) 7.9 % 11/22/24: [place] % (Auto) 4.6 % 11/22/24: Eos % (Auto) 0.0 % 11/22/24 Baso % (Auto) 0.2 % 11/22/24 Neut # (Auto) 11.40 10^3/uL (1.8-7.7) H 11/22/24 Lymph # (Auto) 1.0 10^3/uL (0.8-4.8) 11/22/24: [place] # (Auto) 0.6 10^3/uL (0.2-0.9) 11/22/24 Eos # (Auto) 0.0 10^3/uL (0.0-0.8) 11/22/24 Baso # (Auto) 0.0 10^3/uL (0.0-0.1) 11/22/24 Nucleated RBC % (auto) 0 % 11/22/24 Nucleated RBCs # 0.0 /100WBC 11/22/24: Sodium 140 mmol/L (136-145) 11/22/24 20: Potassium 4.2 mmol/L (3.5-5.1) 11/22/24 20: Chloride 102 mmol/L (98-107) 11/22/24 20: Carbon Dioxide 25 mmol/L (22-29) 11/22/24 20: Anion Gap 17.2 (5-19) 11/22/24 20: BUN 13 mg/dL (6-20) 11/22/24 20: Creatinine 0.9 mg/dL (0.7-1.2) 11/22/24 20: GFR Calculation 98.4 mL/min (90-130) 11/22/24: Glucose 113 mg/dL (65-115) 11/22/24: Calculated Osmolality 291 mOsm/kg (285-295) 11/22/24: Calcium 9.8 mg/dL (8.5-10.5) 11/22/24: Total Bilirubin 0.8 mg/dL (0.15-1.2) 11/22/24 20: AST 53 U/L (0-40) H 11/22/24 20: ALT 92 U/L (0-41) H 11/22/24 20: Alkaline Phosphatase 63 U/L (40-130) 11/22/24 20: Total Protein 8.4 g/dL (6.6-8.7) 11/22/24 20: Albumin 4.7 g/dL (3.5-5.2) 11/22/24 20: Globulin 3.7 g/dL (1.3-4.6) 11/22/24 20: Lipase 15 U/L (13-60) 11/22/24 20: No radiology studies performed this visit Discharge Plan Discharge Patient Disposition: Home Clinical Impression: Acute upper gastrointestinal bleeding Condition: Stable Prescriptions: New pantoprazole 40 mg tablet,delayed release (DR/EC) 40 mg PO DAILY 28 Days Qty: 30 0RF sucralfate [Carafate] 1 gram tablet 1 g PO TID 28 Days Qty: 84 0RF No Action sertraline [Zoloft] 50 mg tablet 50 mg PO DAILY Qty: 30 2RF Discharge Orders: Discharge ED (Routine); Ordered 10/08/25 Ordered By: Jai Bach Referrals: Vince Carey [Primary Care Provider, Family Practice] Discharge Diet: Advance as tolerated and Low Fat Patient Instructions: Patient Portal & Grzegorz Instructions, Gastritis (ED), Peptic Ulcer (ED) Print Language: Welsh Coding Level of Care Code ED [place] Operator for Mario Alberto Forman
[2024-11-22 20:59] LABS: Alanine Aminotransferase 92 U/L (0-41); Albumin Level 4.7 g/dL (3.5-5.2); Alkaline Phosphatase 63 U/L (40-130); Aspartate Amino Transferase 53 U/L (0-40); Blood Urea Nitrogen 13 mg/dL (6-20); Calcium 9.8 mg/dL (8.5-10.5); Carbon Dioxide 25 mmol/L (22-29); Chloride 102 mmol/L (98-107); Creatinine Clr Calc Pharmacy 147.5328; Globulin 3.7 g/dL (1.3-4.6); Glucose 113 mg/dL (65-115); Lipase 15 U/L (13-60); Osmolality Calculated 291 mOsm/kg (285-295); Sodium 140 mmol/L (136-145); Total Protein 8.4 g/dL (6.6-8.7)
[2024-11-22 21:03] LABS: Anion Gap 17.2 (5-19); Potassium 4.2 mmol/L (3.5-5.1)
[2024-11-22 21:42] VITALS: BP 132/84; PULSE 97; O2SAT 97
--- NOTE | 2024-11-23 08:07 | DCPLANNER ---
messaged gen surg for er f/u
== END 2024-11-22 21:55 | disposition home or self-care (01) ==
PROVIDERS: Emergency Provider Student in an Organized Health Care Education/Training Program; PCP Family Medicine
DX: K92.2 Gastrointestinal hemorrhage, unspecified (principal)
CPT/HCPCS: 80053; 83690; 85025; 96374; 96375; 99284; J2405; J2470; J9999

== ENCOUNTER 2024-12-14 08:48 | Day surgery (SDC) | payer BC, SELFPAY ==
[2024-12-14 09:09] VITALS: BP 128/95; PULSE 68; RESP 16; TEMP 36.5; O2SAT 99; BMI 34.4
--- NOTE | 2024-12-14 09:27 | W.PM.OPSUD ---
Surgery/Procedure H&P Update DATE OF PROCEDURE: December 14, 2024 DATE H&P PERFORMED: 12/06/24 H&P UPDATE INFORMATION: I have reviewed H&P completed within last 30 days, I have examined patient prior to procedure, No changes to prior documentation, H&P is in [facility] EMR on date indicated and Risks and benefits of the procedure reviewed PLANNED PROCEDURE: Operation Date: 12/14/24 10:50 Proposed Procedures p EGD EGD with Biopsy 74812 K21.9(Not Applicable) - Joseph Chester MD
--- NOTE | 2024-12-14 10:13 | P.ANESASSM_ITS ---
Pre-Anesthetic Assessment Height/Weight: Height 1.78 m Weight 108.862 kg Temp Pulse Resp BP Pulse Ox O2 Del Method 97.7 F 68 16 128/95 99 Room Air 12/14/24 09:09 12/14/24 09:09 12/14/24 09:09 12/14/24 09:09 12/14/24 09:09 12/14/24 09:09 Operation Date: 12/14/24 10:50 Proposed Procedures p EGD EGD with Biopsy 21121 K21.9(Not Applicable) - Joseph Chester MD Familial anesthetic complications: None Was Beta Keyshawn taken within 24 hours: N/A Was Clonidine taken within 24 hours: N/A Last intake: Intake Last Liquid Date 12/13/24 Last Liquid Time 19:00 Last Solid Date 12/13/24 Last Solid Time 19:00 Social No alcohol and No tobacco Exam alert, oriented x 3, clear to auscultation bilaterally and regular rate & rhythm Airway Mallampati: Class III CV/HEM Ross procedure GI Gastroesophageal Reflux Disease Anesthetic Plan ASA status: 3 Anesthesia: MAC Risk of > 500 ml blood loss (7ml/kg in children): No Medications/Allergies Home Medications ?Medication ?Instructions ?Recorded ?Confirmed ?Last Taken ?Type sertraline 50 mg tablet (Zoloft) 50 mg PO DAILY #30 ta bs 09/14/24 12/14/24 12/13/24 Rx pantoprazole 40 mg tablet,delayed 40 mg PO DAILY 4 wee ks #30 tabs 11/22/24 12/14/24 12/13/24 Rx release sucralfate 1 gram tablet (Carafate) 1 g PO TID 4 weeks #84 tabs 11/22/24 12/14/24 12/13/24 Rx Allergies Allergy/AdvReac Type Severity Reaction Status Date / Time codeine Allergy Severe ALGY-Rash Verified 12/11/24 09:51 Current Medications Generic Name Dose Route Start Last Admin Trade Name Freq PRN Reason Stop Dose Admin Sodium Chloride 1,000 mls @ 15 mls/hr 12/14/24 08:52 12/14/24 09:18 Sodium Chloride 0.9% IV 12/15/24 08:51 15 mls/hr .Q24H PRN Administration COLONOSCOPY FLUIDS PFSH Anesthesia Medical History Psychiatric care Gastritis Gastric ulcer Aortic regurgitation Surgical History 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
[2024-12-14 11:08] VITALS: BP 103/71; PULSE 81; RESP 16; TEMP 36.1; O2SAT 95
[2024-12-14 11:18] VITALS: BP 105/79; PULSE 73; RESP 16; O2SAT 97
[2024-12-14 11:24] VITALS: BP 117/84; PULSE 66; RESP 17; O2SAT 97
--- NOTE | 2024-12-14 11:45 | ANE.PACU2 ---
Inpatient post-anesthesia follow up: Airway intact: Yes Vital signs: Temperature 97.0 F Pulse Rate 66 Respiratory Rate 17 Blood Pressure 117/84 Pulse Oximetry 97 Oxygen Delivery Me thod Room Air Oxygen Flow Rate Fraction of Inspir ed Oxygen Hydration adequate: Yes Nausea and vomiting: No Pain level: 1 Mental status: Baseline
== END 2024-12-14 11:44 | disposition home or self-care (01) ==
PROVIDERS: PCP Family Medicine; Visit Provider Surgery
PROC: 0DJ08ZZ Inspection of Upper Intestinal Tract, Via Natural or Artificial Opening Endoscopic (ICD-10-PCS; 2024-12-14 10:50)
DX: R10.9 Unspecified abdominal pain (principal); K29.50 Unspecified chronic gastritis without bleeding; K21.9 Gastro-esophageal reflux disease without esophagitis; I35.1 Nonrheumatic aortic (valve) insufficiency
CPT/HCPCS: 43239; 88305; 88342; J2704; J7030